=== PATIENT | female | born 1965 | race Caucasian/White ===

== ENCOUNTER 2016-11-10 17:37 | Emergency (ER) | payer SELFPAY ==
[~2016-11-10 17:37] MED LIST: Amoxicillin 500 MG Cap PO ONE
[2016-11-10 17:53] VITALS: BP 133/76
--- NOTE | 2016-11-10 17:54 | EDM.PDOC ---
ED HPI ENT - General Chief Complaint: ENT Problem Stated Complaint: nose bleed Time Seen by Provider: 11/10/16 17:52 Source of Information: Reports: Patient History Limitations: Reports: No limitations - History of Present Illness INITIAL COMMENTS - FREE TEXT/NARRATIVE: This patient is a 51 year old female that presents to the ER. Patient reports that she started about 30 minutes ago with a nose bleed. She reports she has been putting a tissue up to her nose and it will not stop bleeding. Patient reports she had a nosebleed yesterday and another earlier today that stopped on their own. Patient reports she has had some congestion, drainage, cough. She denies loomis, dizziness, n, v, d, f, cp, soa, abd pain, rash. Patient denies injury or picking. She denies any blood thinners other than Monique every once in a while. Symptom Onset Date: 11/10/16 Symptom Onset Time: 17:15 Timing/Duration: Reports: Minutes: (30) Severity: mild Location: Reports: left nares Improves with: Reports: None Worsens with: Reports: None Associated Symptoms: Reports: no other symptoms. Denies: confusion, headaches, seizure, shortness of breath, syncope, weakness, chest pain, cough, sputum, fever/chills, diaphoresis, malaise, loss of appetite, nausea/vomiting, rash - Related Data Allergies/ADRs: Allergies Allergy/AdvReac Type Severity Reaction Status Date / Time No Known Allergies Allergy Verified 11/10/16 17:45 Home Meds: Home Meds Aspirin [Monique Chewable Aspirin] 81 mg PO DAILY 11/10/16 [History] ED ROS ENT - Review of Systems Review Of Systems: See Below Constitutional: Reports: no symptoms HEENT: Reports: Nosebleed (left nare), Rhinitis, Sinus problem Respiratory: Reports: No Symptoms Cardiovascular: Reports: No symptoms Endocrine: Reports: no symptoms GI/Abdominal: Reports: No symptoms : Reports: no symptoms Musculoskeletal: Reports: no symptoms Skin: Reports: no symptoms Neurological: Reports: No Symptoms Psychiatric: Reports: No symptoms Hematologic/Lymphatic: Reports: no symptoms Immunologic: Reports: no symptoms ED EXAM, ENT - Physical Exam Exam: See Below Exam Limited By: No limitations General Appearance: alert, WD/WN, no apparent distress Eye Exam: bilateral eye: normal inspection Ears: normal external exam, normal canal, hearing grossly normal, normal TMs Nose: active bleeding (left mild. ) Mouth/Throat: Normal gums, Normal lips, Normal teeth, Other (mild blood to oropharynx) Head: atraumatic, normocephalic Neck: normal inspection, supple, non-tender, full range of motion Respiratory/Chest: no respiratory distress, lungs clear, normal breath sounds, no accessory muscle use Cardiovascular: normal peripheral pulses, regular rate, rhythm, no edema, no gallop, no JVD, no murmur, no rub Extremities: normal inspection Neurological: alert, oriented Psychiatric: normal affect, normal mood Skin: Warm, Dry, Intact, Normal color, No rash Lymphatic: no adenopathy Course - Vital Signs Last Recorded V/S: Last Vital Signs Temp 100.3 F 11/10/16 17:46 Pulse 95 11/10/16 17:46 Resp 18 11/10/16 17:46 BP 133/76 11/10/16 17:46 Pulse Ox 95 11/10/16 17:46 - Orders/Labs/Meds Meds: Medications Discontinued Medications Generic Name Dose Route Start Last Admin Trade Name Swapna PRN Reason Stop Dose Admin Amoxicillin 2 packet 11/10/16 18:21 11/10/16 18:39 Take Home: Amoxicillin 500 Mg, 2 Cap Pack PO 11/10/16 18:22 2 packet ONETIME ONE Administration - Re-Assessments/Exams Free Text/Narrative Re-Assessment/Exam: 11/10/16 17:56 RN applied direct pressure to the nose for 3 minutes, this decreased bleeding. Then a nose clamp was applied. The bleeding at this time after clamp is controlled. I will leave the clamp in place for 30 minutes and evaluate again to ensure resolve of bleeding. Patient educated to avoid sneezing, coughing, picking. 11/10/16 18:13 Bleeding is controlled with clamp use. I will discharge home with a clamp. Educated to return if nose bleed returns and continues after 30 minutes of clamp or continuous pressure. Due to her congestion, drainage, and temp in ER of 100.3, will prescribe abx. Departure - Departure Time of Disposition: 18:25 Disposition: Home, Self-Care 01 Condition: fair Clinical Impression: Epistaxis Instructions: Nosebleed, [id number] Referrals: Provider,Unknown [Primary Care Provider] - Forms: ED Department Discharge Additional Instructions: Followup with your primary care provider Return to the ER for worsening of condition or any emergent concerns If nose starts to bleed again, apply clamp or apply direct pressure constantly for 30 minutes, if still bleeding then return to the ER. No blowing nose, picking, sneezing, coughing. Amoxicillin 500mg 1 pill three times a day for 10 days total # - Assessment/Plan Plan: PLEASE SEE RN NOTE FOR PFSH.
[2016-11-10] MEDS ORDERED: Take Home: Amoxicillin 500 MG Cap, 2 Cap Pack PO ONE (18:21)
== END 2016-11-10 18:44 | disposition home or self-care (01) ==
LOC: MERGE 17:37 → CC.ED 17:37
DX: R04.0 Epistaxis (principal); Z79.82 Long term (current) use of aspirin
CPT/HCPCS: 99282; A9270